=== PATIENT | male | born 1945 | race Caucasian/White ===

== ENCOUNTER 2017-03-30 17:47 | Emergency (ER) | payer MEDICARE, OTHER ==
[~2017-03-30] VITALS: Ht 180.3 cm; Wt 81.6 kg
--- NOTE | 2017-03-30 18:05 | NUR ---
Dr Mercado at the bedside for eval and exam. Pt is more awake and oriented and able to answer questions appropiatly. Pt has 2 small bites on Lt side of tongue. Pt able to follow commands fully and moving all extremities.
--- NOTE | 2017-03-30 18:05 | NUR ---
PT IS UNABLE TO PROVIDE INFORMATION ABOUT HIS HOME MEDICATION. DR RODRÍGUEZ NOTIFIED.
[2017-03-30] MEDS ORDERED: TDAP DIPH,PERTUSS,TET VAC/PF 0.5 ML DISP.SYRIN IM ONE ×2 (18:15→18:23)
--- NOTE | 2017-03-30 18:19 | NUR ---
Pt out of Er for CT.
[2017-03-30 18:27] LABS: BASOPHILS # (AUTO) 0.1 K/uL (0.0-8.0); BASOPHILS % (AUTO) 0.6 % (0.0-2.0); EOSINOPHILS # (AUTO) 0.1 K/uL (0.0-0.7); EOSINOPHILS % (AUTO) 0.7 % (0.0-7.0); HEMATOCRIT 41.7 % (40-50); LYMPHOCYTES # (AUTO) 2.7 K/UL (0.8-4.8); LYMPHOCYTES % (AUTO) 29.2 % (20.5-51.5); MEAN CORPUSCULAR HEMOGLOBIN 30.1 UUG (27.0-31.0); MEAN CORPUSCULAR HGB CONC 34 g/dL (32.0-37.0); MEAN CORPUSCULAR VOLUME 89.3 FL (82.0-92.0); MONOCYTES # (AUTO) 0.8 K/UL (0.1-1.30); MONOCYTES % (AUTO) 8.5 % (0.0-11.0); NEUTROPHILS # (AUTO) 5.7 K/UL (1.8-8.9); PLATELET COUNT (AUTO) 295 K/UL (150-450); RED BLOOD CELL COUNT(AUTO) 4.67 MIL/UL (4.7-6.1); WHITE BLOOD COUNT (AUTO) 9.4 K/UL (4.0-11.2)
[2017-03-30 18:33] LABS: CARBON DIOXIDE 25 mmol/L (21-32); CHLORIDE 101 mmol/L (98-107); CREATININE 1.1 mg/dL (0.6-1.3); GLUCOSE 130 mg/dL (74-106); POTASSIUM 3.3 mmol/L (3.5-5.1); UREA NITROGEN, BLOOD 20 mg/dL (7-18)
--- NOTE | 2017-03-30 18:38 | NUR ---
Pt back from Ct, denies pain and stating he has no history of seizures.
[2017-03-30 18:39] LABS: ACETAMINOPHEN < 2.0 ug/mL (10-30); ALANINE AMINOTRANSFERASE 45 U/L (16-63); ALKALINE PHOSPHATASE 42 U/L (50-136); ASPARTATE AMINOTRANSFERASE 26 U/L (15-37); BILIRUBIN,DIRECT 0.1 mg/dL (0.0-0.2); BILIRUBIN,TOTAL 0.6 mg/dL (0.2-1.0); TOTAL PROTEIN, SERUM 7.2 g/dL (6.4-8.2)
[2017-03-30 18:41] LABS: ETHANOL < 3 MG/DL (0-0)
[2017-03-30 19:01] LABS: THYROID STIMULATING HORMONE 3.258 mIU/mL (0.358-3.740)
--- NOTE | 2017-03-30 19:18 | NUR ---
PT RECEIVED AND REPORT FROM DAY KELLIE METCALF; PT REASSESSED ;AOX3 RESP EVEN NO SEIZURE ACTIVITY; SEIZURE PRECAUTIONS
--- NOTE | 2017-03-30 19:49 | NUR ---
Camryn from [facility] transfer center called back for transfer info. Patient will be going to [facility] option 1 Ext 4400 room 4402 bed 1. Accepting MD is DR Berumen
--- NOTE | 2017-03-30 19:55 | NUR ---
Faxed Facesheet to Camryn from transfer center at [facility]
--- NOTE | 2017-03-30 20:21 | NUR ---
Shelley mcclain in [facility] - 03/30/17 at 2021 by DAYANARA Jean-Pierre Scott for transport.JESSI u
--- NOTE | 2017-03-30 20:22 | NUR ---
Called [facility] for transport. ETA is 75mins
--- NOTE | 2017-03-30 20:33 | NUR ---
REPORT CALLED TO TESS AMBROCIO [facility] LOFT WORKER APPRENTICEKELLIE COLÓN FOR KELLIE NGUYEN
[2017-03-30] MEDS ORDERED: HYDROCODONE/APAP 5-325MG TABLET PO ONE (20:45)
--- NOTE | 2017-03-30 20:53 | NUR ---
LEATHA VAUGHAN TO ASSIST PT TO VOID IN URINAL; URINE TO LAB
[2017-03-30] MEDS ORDERED: HYDROCODONE/APAP 5-325MG TABLET ONE (20:56)
[2017-03-30] MEDS ORDERED: POTASSIUM BICARBONATE/CIT AC 25 MEQ TABLET.EFF PO ONE (21:15)
[2017-03-30] MEDS ORDERED: POTASSIUM BICARBONATE/CIT AC 25 MEQ TABLET.EFF ONE (21:26)
--- NOTE | 2017-03-30 21:26 | NUR ---
REPORT GIVEN TO PROJECT INTERN AMBUL[facility];CHT COPIES GIVEN; LABS .CT,XRAYS; PT STABLE FOR TRANSFER BELONGINGS WITH PT
[2017-03-30 21:29] LABS: *BILIRUBIN,URIN NEGATIVE (NEGATIVE); *BLOOD, URINE Trace-intact (NEGATIVE); *CLARITY,URINE CLEAR (CLEAR); *COLOR,URINE YELLOW (YELLOW); *KETONES,URINE NEGATIVE (NEGATIVE); *PROTEIN,URINE NEGATIVE (NEGATIVE); *UROBILINOGEN,URINE 0.2 E.U./dl (NORMAL); LEUKOCYTE ESTERASE ,URINE NEGATIVE (NEGATIVE); NITRITE, URINE NEGATIVE (NEGATIVE); PH,URINE 5.5 (5.0-8.0); UGLUCOSE NEGATIVE (NEGATIVE)
[2017-03-30 21:33] LABS: *AMPHETAMINE, URINE NEGATIVE (NEGATIVE); *BARBITURATE, URINE NEGATIVE (NEGATIVE); *CANNABINOID, URINE NEGATIVE (NEGATIVE); *COCCAINE, URINE NEGATIVE (NEGATIVE); *OPIATE, URINE NEGATIVE (NEGATIVE); *PHENCYCLIDINE SCREEN,URINE NEGATIVE (NEGATIVE)
[2017-03-30 21:44] LABS: MUCUS,URINE MODERATE /LPF (0-FEW); RBC,URINE 0-3 /HPF (0-3); WBC,URINE 0-3 /HPF (0-3)
== END 2017-03-30 21:35 | disposition short-term general hospital (02) ==
LOC: ER 17:51 → EDBD 17:51 → ER 21:35
DX: R56.9 Unspecified convulsions (principal); I10 Essential (primary) hypertension; R93.5 Abnormal findings on diagnostic imaging of other abdominal regions, including retroperitoneum
CPT/HCPCS: 36415; 70450; 71010; 72125; 73030; 80048; 80076; 80307; 81001; 82140; 83605 ×2; 84443; 84484; 85025; 85730; 87040 ×2; 87086; 90471; 90715; 93005; 99291; A4663; G0480 ×2; G0481; 70030-TC